=== PATIENT | female | born 1980 | race African-American/Black ===

== ENCOUNTER 2017-01-19 09:28 | Emergency (ER) | payer MEDICAID ==
[~2017-01-19] VITALS: Ht 170.2 cm; Wt 120.0 kg
[2017-01-19] MEDS ORDERED: KETOROLAC 60MG/2ML VIAL IM ONE (10:00)
[2017-01-19 10:15] VITALS: BP 138/65
== END 2017-01-19 11:37 | disposition home or self-care (01) ==
LOC: ER 10:53
DX: M25.562 Pain in left knee (principal); I10 Essential (primary) hypertension; F32.9 Major depressive disorder, single episode, unspecified; J45.909 Unspecified asthma, uncomplicated; F31.9 Bipolar disorder, unspecified; W01.0XXA Fall on same level from slipping, tripping and stumbling without subsequent striking against object, initial encounter
CPT/HCPCS: 73562; 96372; 99284; J1885; L1830; Z7610

== ENCOUNTER 2018-06-28 19:56 | Emergency (ER) | payer MEDICAID, MEDICARE ==
[~2018-06-28] VITALS: Ht 167.6 cm; Wt 124.0 kg
[2018-06-29] MEDS ORDERED: KETOROLAC 60MG/2ML VIAL IM ONE (00:15)
[2018-06-29 01:18] LABS: BASOPHILS % 0.7 % (0.0-2.0); EOSINOPHILS % 2.4 % (0.0-5.0); HEMATOCRIT. 34.2 % (36.0-48.0); HEMOGLOBIN. 11.6 g/dL (12.0-16.0); LYMPHOCYTES % 45.1 % (20.0-50.0); MEAN CORPUSCULAR HEMOGLOBIN 31.7 pg (28.0-32.0); MEAN CORPUSCULAR VOLUME 93.7 fL (81.0-99.0); MEAN PLATELET VOLUME 7.3 fl (7.4-10.4); MONOCYTES % 6.4 % (2.0-8.0); NEUTROPHILS % 45.4 % (40.0-76.0); PLATELET 316 x1000/uL (130-400); RED BLOOD CELL COUNT 3.65 mill/uL (4.2-5.4); RED CELL DISTRIBUTION WIDTH 13.4 % (11.6-14.6)
[2018-06-29 01:24] LABS: PROTHROMBIN TIME 9.7 sec (9.1-11.1)
[2018-06-29 02:18] VITALS: BP 136/86
== END 2018-06-29 02:19 | disposition home or self-care (01) ==
LOC: ER 19:56
DX: R04.0 Epistaxis (principal); G43.909 Migraine, unspecified, not intractable, without status migrainosus; F17.200 Nicotine dependence, unspecified, uncomplicated; F31.9 Bipolar disorder, unspecified; J45.909 Unspecified asthma, uncomplicated
CPT/HCPCS: 36415; 85025; 85610; 96372; 99284; J1885

== ENCOUNTER 2019-11-11 00:50 | Emergency (ER) | payer MEDICAID ==
[~2019-11-11] VITALS: Ht 167.6 cm; Wt 123.0 kg
[2019-11-11 01:01] VITALS: BP 160/98
== END 2019-11-11 05:33 | disposition left against medical advice (07) ==
LOC: ER 00:50
DX: I10 Essential (primary) hypertension (principal); Z53.21 Procedure and treatment not carried out due to patient leaving prior to being seen by health care provider

== ENCOUNTER 2020-05-25 14:15 | Emergency (ER) | payer MEDICAID ==
[~2020-05-25] VITALS: Ht 167.6 cm; Wt 129.0 kg
[2020-05-25] MEDS ORDERED: IBUPROFEN 600MG TABLET PO STA (14:59)
[2020-05-25 16:16] VITALS: BP 118/78
== END 2020-05-25 16:17 | disposition home or self-care (01) ==
LOC: ER 14:15
DX: S69.92XA Unspecified injury of left wrist, hand and finger(s), initial encounter (principal); X58.XXXA Exposure to other specified factors, initial encounter; Y93.89 Activity, other specified; Y92.89 Other specified places as the place of occurrence of the external cause; Y99.8 Other external cause status
CPT/HCPCS: 29130; 73140; 99283

== ENCOUNTER 2023-02-24 12:35 | Emergency (ER) | payer MEDICAID ==
[~2023-02-24] VITALS: Ht 167.6 cm; Wt 129.0 kg
[2023-02-24 13:11] VITALS: BP 141/74
== END 2023-02-24 16:43 | disposition left against medical advice (07) ==
LOC: ER 12:35
DX: Z53.21 Procedure and treatment not carried out due to patient leaving prior to being seen by health care provider (principal)
CPT/HCPCS: 99281